=== PATIENT | female | born 1980 | race Asian ===

== ENCOUNTER 2017-09-11 19:03 | Emergency (ER) | payer MEDICAID, SELFPAY ==
[2017-09-11 19:04] VITALS: BP 122/86; PULSE 123; RESP 20; TEMP 37; O2SAT 97; BMI 28.0
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
[2017-09-11 20:53] VITALS: BP 114/78; PULSE 89; RESP 18; O2SAT 97
== END 2017-09-11 20:54 | disposition home or self-care (01) ==
PROVIDERS: Emergency Provider Emergency Medicine
DX: S00.83XA Contusion of other part of head, initial encounter (principal); Z72.0 Tobacco use; Y04.2XXA Assault by strike against or bumped into by another person, initial encounter; Y93.89 Activity, other specified; Y92.89 Other specified places as the place of occurrence of the external cause; Y99.8 Other external cause status
CPT/HCPCS: 70486; 99282

== ENCOUNTER 2017-10-09 18:48 | Inpatient (IN) | payer MEDICAID, SELFPAY ==
--- NOTE | 2017-10-09 21:00 | CT_ITS ---
STUDY: CT ABDOMEN AND PELVIS WITHOUT CONTRAST REASON FOR EXAM: Female, 37 years old. Mid abdominal pain RADIATION DOSAGE (If Supplied By Facility): CTDIvol = ( 6.11 ) mGy, DLP = ( 285.57 ) mGycm TECHNIQUE: Transaxial images were obtained from the lower chest to the upper thighs without oral contrast, and without intravenous contrast. Sagittal and coronal images were reconstructed. Individualized dose optimization techniques were used for this CT. COMPARISON: None. FINDINGS: There is minimal dependent atelectasis in both lung bases. There is no pleural effusion. The heart is normal in size. The liver is unremarkable. The gallbladder and biliary ducts are unremarkable. The spleen is unremarkable. The pancreas is unremarkable. The adrenal glands are unremarkable. The right kidney is unremarkable. There is no dilatation of the collecting system in the right kidney. The left kidney is unremarkable. There is no dilatation of the collecting system in the left kidney. The stomach is unremarkable. Small bowel is prominent and there is wall thickening in the small bowel, most pronounced in the left lower abdomen. There is minimal stranding around the small bowel in the lower abdomen. The colon is unremarkable. The appendix is not seen with certainty. The aorta and branch vessels are unremarkable. The IVC is unremarkable. The retroperitoneum is unremarkable. There is no free fluid in the abdomen. The urinary bladder is unremarkable. The uterus is normal in size and appearance. There are no abnormal masses in the adnexal regions. The soft tissues are unremarkable. The osseous structures are unremarkable. CT/Abdomen/Pelvis without Cont IMPRESSION: The study is limited without intravenous or oral contrast. Small bowel is prominent and there is wall thickening with surrounding inflammation suggesting an enteritis. This can be infectious or inflammatory. This appears most pronounced in the left lower abdomen. There is no ascites, free air or significant lymphadenopathy. Electronically Signed: Vero Fuentes MD at 11:06 EDT Tel Direct: [phone], Service support ,
--- NOTE | 2017-10-10 | EGD_PTH ---
PATIENT: CATIA HERNNADEZ LOC: PCU U#:[id number] AGE/SX: 37/F ROOM: [facility] RE10/10/[address]: Dr. Dayanna Leija MD : 1980 BED: 1 DIS: 10/15/2017 SPEC #: [id number] RECD: 10/10/17 14:11 STATUS: OTIS REQ #: [id number] CIPRIANO: 10/10/17 00:[address]: Lawrence Pineda DEPT: SURGICAL PATHOLOGY RECD BY: Abdiaziz Shaw ENTERED: 10/10/17 14:11 SP TYPE: EGD BIOPSY OTHR DR: Dr. Cierra Molina MD No Primary Care Phys Tissues: A - Gastric mucous membrane B - Gastric mucous membrane C - Gastric mucous membrane Procedures: Special Stain Group II Surgery Specimen Level IV Alcian Blue/PAS (control) Comments: @ Ordering doctor for SUIV edited from to @ by JOY at 10/11/17 1104 @ Submitting doctor edited from to @ by JOY at 10/11/17 1104 HEADER OPERATION: EGD PRE-OP DIAGNOSIS: Abdomen pain TISSUE SUBMITTED: A ? Jejunal biopsy, B ? Antral biopsy, C ? GE junction biopsy MICROSCOPIC DIAGNOSIS A. Jejunal biopsy: Fragment of small intestinal mucosa, no pathologic diagnosis. B. Antral biopsy: Mild gastritis. See microscopic description and comment. C. GE junction, biopsy: Fragment of gastroesophageal mucosa with chronic inflammation. Intestinal metaplasia (goblet cell metaplasia) is not identified. See comment. SJ:rg 10/13/17 COMMENT B. The results of immunohistochemistry for Helicobacter pylori will be reported separately ([id number]). C. Alcian blue/PAS stain with matched control is used in the evaluation of the specimen. MICROSCOPIC DESCRIPTION Slides are reviewed. B. The specimen shows fragments of gastric mucosa with chronic inflammatory cell infiltrates in the lamina propria consisting of lymphocytes and plasma cells, consistent with mild chronic gastritis. GROSS DESCRIPTION A - Received in fixative is one container labeled with the patient's name and designated jejunal biopsy. The specimen consists of one irregular fragment of light shea soft tissue that measures 0.4 x 0.3 x 0.1 cm. The specimen is totally submitted in one cassette. B - Received in fixative is one container labeled with the patient's name and designated antral biopsy. The specimen consists of one irregular fragment of light shea soft tissue that measures 0.4 x 0.4 x 0.1 cm. The specimen is totally submitted in one cassette. C - Received in fixative is one container labeled with the patient's name and designated GE junction biopsy. The specimen consists of one irregular fragment of light shea soft tissue that measures 0.2 x 0.1 x 0.1 cm. The specimen is totally submitted in one cassette. / SJ:rg 10/10/17 TC: CPT: 70410 x3, 36787
--- NOTE | 2017-10-10 | IMM_PTH ---
PATIENT: CATIA HERNANDEZ LOC: PCU U#:[id number] AGE/SX: 37/F ROOM: [facility] RE10/10/[address]: Dr. Dayanna Leija MD : 1980 BED: 1 DIS: 10/15/2017 SPEC #: [id number] RECD: 10/13/17 11:23 STATUS: SOUT REQ #: [id number] CIPRIANO: 10/10/17 00:[address]: Lawrence Pineda DEPT: IMMUNOHISTOCHEMISTRY RECD BY: Rosa Espinal ENTERED: 10/13/17 11:23 SP TYPE: IMMUNO OTHR DR: MD Dr. Cierra Fontaine MD No Primary Care Phys Tissues: B - Stomach, NOS Procedures: H Pylori (initial) Comments: @ Ordering doctor for H.PYLORI edited from to @ by JOY at 10/13/17 1550 @ Submitting doctor edited from to @ by JOY at 10/13/17 1550 PHYSICIAN & [place] [id number] SPECIMEN INFORMATION: Tissue Source: B ? Antral biopsy Clinical Info: Abdomen pain Specimen Number: [id number] CPT code: 29314 METHODOLOGY: Deparaffinized sections of prefer/formalin-fixed tissue or PAP/DQ stained slides are incubated with monoclonal/polyclonal antibodies/oligonucleotide probes. Localization is made via biotin free immunoperoxidase method. Appropriate controls are performed and reacted as expected. Results on target cell population are indicated in the following table: RESULTS: ANTIBODY / CLONE RESULT Block B H Pylori (polyclonal) negative These tests were developed and their performance characteristics determined by [facility]. They may not have been cleared or approved by the U.S. Food and Drug Administration. The FDA has determined that such clearance or approval is not necessary. INTERPRETATION: B. Antral biopsy: Negative for Helicobacter pylori organisms. SJ:mouna 10/13/17
--- NOTE | 2017-10-10 08:13 | DT_ITS ---
This patient was seen during an EMR downtime October 06, 2017 - October 13, 2017. This patient may have a combination of paper and electronic documentation or all paper documentation. All documentation is viewable within the e-chart portion of [facility] for each patient visit.
--- NOTE | 2017-10-10 09:05 | RAD_ITS ---
STUDY: X-RAY CHEST REASON FOR EXAM: Female, 37 years old. Mesenteritis TECHNIQUE: PA and lateral views of the chest. COMPARISON: CT of the abdomen and pelvis dated October 11, 2017 FINDINGS: There are few bibasilar patchy opacities. Normal size heart. Normal mediastinum and blayne. Normal visualized pulmonary arteries. Normal visualized aortic arch and descending thoracic aorta. Normal visualized thoracic spine. Normal visualized ribs, clavicles, and shoulders. There are air-fluid levels noted within dilated loops of small bowel. RAD/Chest PA and Lateral IMPRESSION: Bibasilar patchy opacities may reflect underlying atelectasis and/or pneumonia. Findings concerning for small bowel obstruction. Electronically Signed: Vera Tabares MD at 18:31 EDT Tel , Service support ,
--- NOTE | 2017-10-11 09:00 | CT_ITS ---
STUDY: CT ABDOMEN AND PELVIS WITH CONTRAST REASON FOR EXAM: Female, 37 years old. Abdominal pain RADIATION DOSAGE (If Supplied By Facility): CTDIvol = ( 15.82 ) mGy, DLP = ( 782.51 ) mGycm TECHNIQUE: Transaxial images were obtained from the dome of the diaphragm to the symphysis pubis without oral contrast. 100ML ml of Isovue 300 contrast was administered. Sagittal and coronal images were reconstructed. Individualized dose optimization techniques were used for this CT. COMPARISON: None. FINDINGS: Lung bases demonstrate bibasilar subsegmental atelectasis no pericardial effusion. Spleen and liver appear unremarkable small amount of perihepatic fluid Gallbladder is slightly distended. The pancreas and adrenal glands appear unremarkable. Kidneys demonstrate no evidence for hydronephrosis. Dilatation of the small bowel loops with air-fluid levels and collapse of the distal loops noted suggestive of small bowel obstruction. Small amount of interloop fluid also seen. There is free fluid in the pelvis. Abdominal aorta appears unremarkable Uterus appears heterogeneous Osseous structures demonstrate no acute abnormalities. Degenerative disc disease at L5-S1 level. No free intraperitoneal air seen. IMPRESSION: Dilated small bowel loops with air-fluid levels and collapse of the distal loops suggestive of small bowel obstruction. Small amount of interloop fluid is seen. Free fluid in the pelvis also identified. Heterogeneous appearance of the cervix which can be assessed with direct visual inspection. Small cervical mass is not excluded from this examination. Electronically Signed: Nahum Panda, at 11:34 EDT Tel , Service support , CT/Abdomen/Pelvis WITH Contrast
[2017-10-11 12:00] LABS: Amphetamine Urine VISTA POSITIVE (<1000 ng/mL); Barbiturate Urine VISTA NEGATIVE (< 200 ng/mL); Benzodiazepine Urine VISTA NEGATIVE (< 200 ng/mL); Cocaine Urine VISTA NEGATIVE (< 300 ng/mL); Ecstacy Urine VISTA POSITIVE (< 500 ng/mL); Methadone Urine VISTA NEGATIVE (< 300 ng/mL); PCP Urine VISTA NEGATIVE (< 25 ng/mL); THC Urine VISTA NEGATIVE (< 50 ng/mL)
[2017-10-11 12:09] LABS: ALB/GLOB Ratio 0.8 RATIO (0.9-2.4); AST(SGOT) 29 U/L (15-37); Alanine Aminotransfer ALT/SGPT 47 U/L (13-56); Albumin, Serum 3.4 g/dL (3.2-5.0); Alkaline Phosphatase 87 U/L (45-117); Anion Gap 9 (5-15); BUN 9 mg/dL (7-18); BUN/Creat Ratio 10.8 RATIO (10-20); Calcium,Total 8.4 mg/dL (8.5-10.1); Chloride 104 mmol/L (98-107); Creatinine, Serum 0.83 mg/dL (0.55-1.02); EST Glomerular Filtration Rate 83 mL/min (>60); Est Glom Filt Rate - Afr Amer 101 mL/min (>60); Globulin 4.2 g/dL (2.2-4.2); Glucose 102 mg/dL (74-106); Lipase 56 U/L (73-393); Potassium 3.7 mmol/L (3.5-5.1); Protein, Total 7.6 g/dL (6.4-8.2); Sodium Level 140 mmol/L (136-145)
[2017-10-11 12:10] LABS: Pregnancy, Serum, hCG Quali. NEGATIVE Negative (0-9 Nonpreg)
[2017-10-11 13:34] LABS: Bacteria 0 SEEN /hpf (None Seen); Color, Urine Yellow (Yellow); Glucose, Dipstick NEGATIVE (Normal); Ketone-Dipstick 50 mg/dl (Negative); Leukocyte Esterase-Dipstick 25 /ul (Negative); Mucous, Urine 2+ /hpf (<or=2+); Nitrite-Dipstick Negative (Negative); Occult Blood-Urine Negative /ul (Negative); Protein-Dipstick 30 mg/dl (Negative); Red Blood Cells-Urine 0 SEEN /hpf (0-5); Specific Gravity, Urine 1.015 (1.002-1.030); Squamous Epithelial Cells - UA 0-5 SEEN /hpf (5-10); Urine Bilirubin Dipstick Negative (Negative); Urine Clarity Clear (Clear); Urine Urobilinogen Normal (Normal); White Blood Cells 0-5 SEEN /hpf (0-5)
[2017-10-11 13:39] LABS: Absolute Lymphocyte Count 1.27 X10^3/ul (0.83-4.51); Absolute Neutrophil Count 20.7 X10^3/uL (2.0-7.7); Basophil# 0.01 X10^3/uL; Differential Indicated SCAN CRITERIA MET; Hematocrit 39.7 % (37-47); Lymphocyte # 1.27 X10^3/ul (4.0); Lymphocyte % 5.6 % (19-41); Mean Corp Hgb Conc 35.3 g/gl (32-36); Mean Corpuscular Hgb 31.1 pg (27.0-32.0); Mean Corpuscular Volume 88.2 fL (81-99); Mean Platelet Vol. 9.3 fl (6.2-12.0); Monocyte# 0.66 X10^3/uL; Monocyte% 2.9 % (0-10); Neutrophil # 20.66 X10^3/uL (2.7-7.7); Neutrophil % 91.2 % (47-70); POSITIVE COUNT NO; POSITIVE DIFFERENTIAL YES; POSITIVE MORPHOLOGY NO; Platelet Count 322 K/mm3 (150-450); RBC Distribution Width CV 12.3 % (11.6-14.6); RBC Distribution Width SD 39.2 fl (35.1-43.9); White Blood Count 22.7 K/mm3 (4.4-11.0)
[2017-10-11 13:40] LABS: Differential Comment SCANNED
--- NOTE | 2017-10-12 05:00 | RAD_ITS ---
STUDY: X-RAY - ABDOMEN/PELVIS REASON FOR EXAM: Female, 37 years old. Abdominal pain. TECHNIQUE: AP supine and upright views of the abdomen and pelvis. COMPARISON: CT of the abdomen and pelvis dated October 11, 2017. FINDINGS: Normal visualized lung bases. There is dilated small bowel with multiple air-fluid levels. Maximum transverse dimension of the small bowel is approximately 4.6 cm. There is no demonstrated free abdominal air. There is no obvious organomegaly or mass. Opaque contrast is visible in the urinary bladder probably related to recent CT. Normal soft tissue structures. Normal visualized osseous structures. RAD/Abd Inc Decub and/or Erect IMPRESSION: Persistent evidence for small bowel obstruction. Electronically Signed: Dina Reyes MD at 8:13 EDT , Service support ,
[2017-10-12 07:29] LABS: Hemoglobin 11.8 g/dl (12.0-15.0); Mean Corpuscular Hgb 30.1 pg (27.0-32.0); Red Blood Count 3.92 M/mm3 (4.2-5.4); White Blood Count 15.1 K/mm3 (4.4-11.0)
[2017-10-12 07:30] LABS: Mean Corp Hgb Conc 33.7 g/gl (32-36); Mean Platelet Vol. 9.4 fl (6.2-12.0); POSITIVE COUNT NO; POSITIVE DIFFERENTIAL NO; POSITIVE MORPHOLOGY NO; Platelet Count 336 K/mm3 (150-450); RBC Distribution Width CV 12.9 % (11.6-14.6); RBC Distribution Width SD 41.4 fl (35.1-43.9)
[2017-10-12 07:31] LABS: Absolute Lymphocyte Count 1.27 X10^3/ul (0.83-4.51); Absolute Neutrophil Count 13.1 X10^3/uL (2.0-7.7); Basophil# 0.01 X10^3/uL; Basophil% 0.1 % (0-1); Eosinophil# 0.07 X10^3/uL; Eosinophils% 0.5 % (0-5); Lymphocyte # 1.27 X10^3/ul (4.0); Lymphocyte % 8.4 % (19-41); Monocyte# 0.56 X10^3/uL; Monocyte% 3.7 % (0-10); Neutrophil # 13.14 X10^3/uL (2.7-7.7); Neutrophil % 87.2 % (47-70)
--- NOTE | 2017-10-12 10:09 | US_ITS ---
STUDY: PELVIC ULTRASOUND TRANSVAGINAL REASON FOR EXAM: Female, 37 years old. Abdominal pain, fluid on CT LMP: October 07, 2017 TECHNIQUE: Transverse and longitudinal imaging of the pelvis was obtained transvaginally using real-time ultrasound. COMPARISON: CT abdomen and pelvis dated October 11, 2017 and October 09, 2017 FINDINGS: The uterus is anteverted and is in a midline position. The uterus measures 7.2 x 3.5 x 4.7 cm. The cervix is unremarkable. The endometrium measures 8.7 mm in thickness, and is heterogeneous. There is no demonstrated endometrial mass. There is no demonstrated myometrial mass. I.U.D. - The patient does not have an I.U.D. The right ovary is visualized. The right ovary measures 2.7 x 1.3 x 1.7 cm. There is no right ovarian cyst or ovarian mass. There is no visualized right adnexal mass or complex lesion. There is normal arterial and normal venous vascularity. The left ovary is visualized. The left ovary measures 3.0 x 1.6 x 2.5 cm. There is no left ovarian cyst or ovarian mass. There is no visualized left adnexal mass or complex lesion. There is normal arterial and normal venous vascularity. There is a large volume of fluid in the cul-de-sac. The urinary bladder was not imaged. US/Transvaginal Non- IMPRESSION: There is marked ascites in the pelvis. Some of the fluid is complex in nature, possibly hemorrhagic or infectious. No abnormalities are evident in the uterus or ovaries. There are distended loops of bowel in the pelvis corresponding to the appearance on CT. The CT from October 11 shows marked worsening of the small bowel compared to October 09 suggesting a small bowel obstruction of unknown etiology. Electronically Signed: Vero Fuentes MD at 11:06 EDT Tel Direct: [phone], Service support ,
[2017-10-12 12:48] LABS: ALB/GLOB Ratio 0.5 RATIO (0.9-2.4); AST(SGOT) 9 U/L (15-37); Alanine Aminotransfer ALT/SGPT 14 U/L (13-56); Alkaline Phosphatase 85 U/L (45-117); Anion Gap 8 (5-15); BUN 7 mg/dL (7-18); BUN/Creat Ratio 13.7 RATIO (10-20); Calcium,Total 7.8 mg/dL (8.5-10.1); Chloride 109 mmol/L (98-107); Creatinine, Serum 0.51 mg/dL (0.55-1.02); EST Glomerular Filtration Rate 145 mL/min (>60); Est Glom Filt Rate - Afr Amer 176 mL/min (>60); Globulin 4.2 g/dL (2.2-4.2); Glucose 100 mg/dL (74-106); Potassium 3.3 mmol/L (3.5-5.1); Protein, Total 6.2 g/dL (6.4-8.2); Sodium Level 141 mmol/L (136-145)
[2017-10-13] VITALS (8 sets, daily range): BP systolic 97–112; BP diastolic 71–76; PULSE 86–102; RESP 16–18; TEMP 35.9–36.9; O2SAT 97–99
[2017-10-13] MEDS: Piperacil/Tazobactam 3.375 GM Q8 PREMIX IV ×3 (05:25→21:55)
[2017-10-13] MEDS: Enoxaparin 40 MG/0.4 ML Syringe SC (05:25)
[2017-10-13 06:16] LABS: Absolute Lymphocyte Count 1.53 X10^3/ul (0.83-4.51); Absolute Neutrophil Count 11.5 X10^3/uL (2.0-7.7); Basophil# 0.02 X10^3/uL; Basophil% 0.1 % (0-1); Eosinophil# 0.16 X10^3/uL; Eosinophils% 1.1 % (0-5); Hematocrit 33.7 % (37-47); Hemoglobin 11.7 g/dl (12.0-15.0); Lymphocyte # 1.53 X10^3/ul (4.0); Lymphocyte % 10.7 % (19-41); Mean Corp Hgb Conc 34.7 g/gl (32-36); Mean Corpuscular Hgb 30.8 pg (27.0-32.0); Mean Corpuscular Volume 88.7 fL (81-99); Mean Platelet Vol. 9.2 fl (6.2-12.0); Monocyte# 1.07 X10^3/uL; Monocyte% 7.5 % (0-10); Neutrophil # 11.46 X10^3/uL (2.7-7.7); Neutrophil % 80.3 % (47-70); Platelet Count 374 K/mm3 (150-450); RBC Distribution Width CV 12.5 % (11.6-14.6); RBC Distribution Width SD 39.5 fl (35.1-43.9); White Blood Count 14.3 K/mm3 (4.4-11.0)
[2017-10-13 06:43] LABS: POSITIVE COUNT NO; POSITIVE DIFFERENTIAL NO; POSITIVE MORPHOLOGY NO
[2017-10-13 06:54] LABS: ALB/GLOB Ratio 0.5 RATIO (0.9-2.4); AST(SGOT) 11 U/L (15-37); Alanine Aminotransfer ALT/SGPT 12 U/L (13-56); Alkaline Phosphatase 73 U/L (45-117); Anion Gap 6 (5-15); BUN 3 mg/dL (7-18); BUN/Creat Ratio 5.4 RATIO (10-20); Calcium,Total 7.9 mg/dL (8.5-10.1); Chloride 106 mmol/L (98-107); Creatinine, Serum 0.56 mg/dL (0.55-1.02); EST Glomerular Filtration Rate 130 mL/min (>60); Est Glom Filt Rate - Afr Amer 157 mL/min (>60); Globulin 4.3 g/dL (2.2-4.2); Glucose 112 mg/dL (74-106); Potassium 3.4 mmol/L (3.5-5.1); Protein, Total 6.3 g/dL (6.4-8.2); Sodium Level 142 mmol/L (136-145)
[2017-10-13] MEDS: oxyCODONE 5 MG Tablet PO ×2 (09:05→15:15)
[2017-10-13] MEDS: 0.9% NaCl Peripheral Flush Adult/Peds IV (09:25)
[2017-10-13] MEDS: proMETHazine 25 MG/ML Syringe 6.25 MG IV (09:25)
--- NOTE | 2017-10-13 09:39 | RAD_ITS ---
STUDY: X-RAY - ABDOMEN/PELVIS REASON FOR EXAM: Female, 37 years old. Abdominal pain. Bleeding TECHNIQUE: 1 view COMPARISON: None. FINDINGS: Minimally prominent loops of large bowel with contrast within it no evidence of intestinal obstruction and no free intraperitoneal air RAD/Abd Inc Decub and/or Erect IMPRESSION: No evidence of intestinal obstruction. Electronically Signed: Jaden Beltran, at 6:03 EDT Tel , Service support ,
[2017-10-13 10:51] LABS: Magnesium 1.7 mg/dL (1.6-2.6)
--- NOTE | 2017-10-13 14:53 | PCM.PN.SRG ---
Subjective: still some abdominal cramping, nonbloody bowel movement- - Physical Exam General: Alert, Oriented x3 Lungs: Rhonchi - bases Cardiovascular: Regular rate, Regular Rhythm Abdomen: Bowel Sounds Present, Soft, Hypoactive Bowel Sounds, Distended, Tender - mildly, diffusely tender, but improved over the weekend Laboratory Tests Past 24 Hrs 10/13/17 10/13/17 10/13/17 05:40 05:40 05:40 WBC 14.3 H RBC 3.80 L Hgb 11.7 L Hct 33.7 L MCV 88.7 MCH 30.8 MCHC 34.7 RDW 12.5 RDW Differential 39.5 Plt Count 374 MPV 9.2 Immature Gran % (Auto) 0.300 Neut % (Auto) 80.3 H Lymph % (Auto) 10.7 L [place] % (Auto) 7.5 Eos % (Auto) 1.1 Baso % (Auto) 0.1 Absolute Neuts (auto) 11.5 H Absolute Lymphs (auto) 1.53 Total Counted Not Reportable Sodium 142 Potassium 3.4 L Chloride 106 Carbon Dioxide 30.0 Anion Gap 6 BUN 3 L Creatinine 0.56 Est GFR (MDRD) Af Amer 157 Est GFR (MDRD) Non-Af 130 BUN/Creatinine Ratio 5.4 L Glucose 112 H Calcium 7.9 L Magnesium 1.7 Total Bilirubin 0.40 AST 11 L ALT 12 L Alkaline Phosphatase 73 Total Protein 6.3 L Albumin 2.0 L Globulin 4.3 H Albumin/Globulin Ratio 0.5 L Medical Necessity - Tobacco Use Smoking Status: Former smoker Assessment/Plan abdominal pain-complex etiology Jade Jackson is a 37 y.o. female who presented with abdominal pain which worsened after smoking crystal methamphetamine. She presented with abdominal pain and nonspecific noncontrast CT scan read as possible mesenteric inflammation. the patient's white blood cell count was 22,000 at admission. She had a negative Lactic acid level. Her urinalysis was unremarkable. Her toxicology screen was only positive for methamphetamine. patient was started on Zosyn as an antibiotic on my initial evaluation, the patient had more tenderness in the epigastric region and lower abdominal areas. Upper endoscopy was performed on Friday, which did demonstrate a duodenal ulcer with no signs of bleeding. the patient's abdominal pain persisted in her white blood second increased to 39,000. Follow-up CT scan with oral and IV contrast was obtained. This still demonstrated no focal surgical problem such as appendicitis, but now demonstrated small bowel and colonic distention concerning for ileus versus obstruction. There is also fluid in the pelvis and the uterus appeared hazy to me. additionally felt the patient had bilateral lower lung field changes felt to be consistent with either pneumonitis or inhaled material from her smoking crystal methamphetamine Bimanual exam demonstrated no true cervical motion tenderness for bilateral adnexal tenderness. Pelvic ultrasound was obtained which demonstrated fluid but no obvious signs of pelvic inflammatory disease. Follow up abdominal series now shows improvement with contrast to the rectum. The patient's WBC continues to normalize and her bowel function seems to be returning. Literature review does discuss both ileus after methamphetamine use and ischemic bowel/abdominal pain issues secondary to norepinephrine release. at this point in time, given her course and without more specific identifiable surgical problems, my working diagnosis remains abdominal pain secondary to crystal methamphetamine use.
[2017-10-13] MEDS: Potassium Chloride 40 MEQ in 0.9% Normal Saline 1,000 ML 70 MEQ IV (15:06)
[2017-10-13 22:53] LABS: ALB/GLOB Ratio 0.7 RATIO (0.9-2.4); AST(SGOT) 17 U/L (15-37); Alanine Aminotransfer ALT/SGPT 32 U/L (13-56); Albumin, Serum 2.7 g/dL (3.2-5.0); Alkaline Phosphatase 73 U/L (45-117); Anion Gap 8 (5-15); BUN 9 mg/dL (7-18); BUN/Creat Ratio 10.7 RATIO (10-20); Calcium,Total 7.7 mg/dL (8.5-10.1); Chloride 109 mmol/L (98-107); Creatinine, Serum 0.84 mg/dL (0.55-1.02); EST Glomerular Filtration Rate 82 mL/min (>60); Est Glom Filt Rate - Afr Amer 99 mL/min (>60); Globulin 3.7 g/dL (2.2-4.2); Glucose 99 mg/dL (74-106); Magnesium 1.8 mg/dL (1.6-2.6); Phosphorus 3.3 mg/dL (2.5-4.9); Potassium 3.6 mmol/L (3.5-5.1); Protein, Total 6.4 g/dL (6.4-8.2); Sodium Level 142 mmol/L (136-145)
[2017-10-13 23:03] LABS: Lactic Acid 1.1 mmol/L (0.4-2.0)
[2017-10-14] VITALS (11 sets, daily range): BP systolic 101–112; BP diastolic 71–79; PULSE 78–96; RESP 16–17; TEMP 36.4–37.2; O2SAT 93–99
[2017-10-14] MEDS: oxyCODONE 5 MG Tablet PO ×3 (00:31→18:39)
[2017-10-14] MEDS: Piperacil/Tazobactam 3.375 GM Q8 PREMIX IV ×3 (05:22→20:52)
[2017-10-14] MEDS: Enoxaparin 40 MG/0.4 ML Syringe SC (05:24)
[2017-10-14 06:07] LABS: Absolute Lymphocyte Count 2.11 X10^3/ul (0.83-4.51); Absolute Neutrophil Count 8.8 X10^3/uL (2.0-7.7); Basophil# 0.03 X10^3/uL; Basophil% 0.2 % (0-1); Eosinophil# 0.19 X10^3/uL; Eosinophils% 1.6 % (0-5); Hematocrit 32.2 % (37-47); Hemoglobin 11.3 g/dl (12.0-15.0); Lymphocyte # 2.11 X10^3/ul (4.0); Lymphocyte % 17.2 % (19-41); Mean Corp Hgb Conc 35.1 g/gl (32-36); Mean Corpuscular Hgb 30.9 pg (27.0-32.0); Monocyte# 1.01 X10^3/uL; Monocyte% 8.3 % (0-10); Neutrophil % 71.9 % (47-70); Platelet Count 362 K/mm3 (150-450); RBC Distribution Width CV 12.4 % (11.6-14.6); Red Blood Count 3.66 M/mm3 (4.2-5.4); White Blood Count 12.2 K/mm3 (4.4-11.0)
[2017-10-14 06:11] LABS: POSITIVE COUNT NO; POSITIVE DIFFERENTIAL NO; POSITIVE MORPHOLOGY NO
[2017-10-14 06:56] LABS: Anion Gap 6 (5-15); BUN 2 mg/dL (7-18); BUN/Creat Ratio 3.9 RATIO (10-20); Chloride 108 mmol/L (98-107); Creatinine, Serum 0.52 mg/dL (0.55-1.02); EST Glomerular Filtration Rate 143 mL/min (>60); Est Glom Filt Rate - Afr Amer 173 mL/min (>60); Glucose 99 mg/dL (74-106); Potassium 3.9 mmol/L (3.5-5.1); Sodium Level 140 mmol/L (136-145)
--- NOTE | 2017-10-14 06:56 | PCM.PN.HOSP ---
Subjective: Patient was seen and examined. She is tolerating soft diet. Ambulating in the room. Complains of some mild abdominal pain. Oxycodone seems to help. Vitals/I&O's: Vital Signs Temp Pulse Resp BP Pulse Ox 97.6 F L 92 17 111/75 98 10/14/17 02:18 10/14/17 03:13 10/14/17 02:18 10/14/17 02:18 10/14/17 02:18 Oxygen Delivery Method Room Air Weight: 65.2 kg Intake and Output for Last 24 Hours 10/12/17 10/13/17 10/14/17 23:59 23:59 23:59 Intake Total 1233 / 1233 1515 / 1515 Balance 1233 / 1233 1515 / 1515 General: Alert, Oriented x3, Cooperative, No apparent distress HEENT: Atraumatic, PERRLA, EOMI, Normocephalic Oral: Moist Mucosa Neck: Supple Lungs: Clear to auscultation, Normal air movement Cardiovascular: Regular rate, Regular Rhythm, Normal S1, Normal S2, No murmurs Abdomen: Bowel Sounds Present, Soft, Non-Distended, No Hepato-splenomegaly, Tender - generalised, no guarding, or RBT Extremities: No edema Skin: No rashes, No breakdown Musculoskeletal: No Tenderness to Palpation of Joints or Extremities Lymphatic: No Cervical, Supraclavicular, or Inguinal Adenopathy Neurological: Cranial nerves II-XII grossly intact, Neuro grossly intact Psych/Mental Status: Normal Affect, Appropriate Laboratory Results 10/13/17 05:40: Magnesium 1.7 10/14/17 05:45: WBC 12.2 H, RBC 3.66 L, Hgb 11.3 L, Hct 32.2 L, MCV 88.0, MCH 30.9, MCHC 35.1, RDW 12.4, RDW Differential 39.0, Plt Count 362, MPV 9.0, Immature Gran % (Auto) 0.800, Neut % (Auto) 71.9 H, Lymph % (Auto) 17.2 L, [place] % (Auto) 8.3, Eos % (Auto) 1.6, Baso % (Auto) 0.2, Absolute Neuts (auto) 8.8 H, Absolute Lymphs (auto) 2.11, Total Counted Not Reportable 10/14/17 05:45: Sodium 140, Potassium 3.9, Chloride 108 H, Carbon Dioxide 26.0, Anion Gap 6, BUN 2 L, Creatinine 0.52 L, Est GFR (MDRD) Af Amer 173, Est GFR (MDRD) Non-Af 143, BUN/Creatinine Ratio 3.9 L, Glucose 99, Calcium 8.0 L Current Medications Acetaminophen (Tylenol) 650 mg PO Q4H PRN PRN PRN Reason: PAIN/FEVER Al Hydroxide/Mg Hydroxide (Mylanta Ii) 30 ml PO Q6H PRN PRN PRN Reason: DYSPEPSIA Enoxaparin Sodium (Lovenox) 40 mg SC DAILY@0600 [facility] Last Admin: 10/14/17 05:24 Dose: 40 mg Pantoprazole Sodium 40 mg/ (Sodium Chloride) 100 mls @ 300 mls/hr IV BID [facility] Last Admin: 10/13/17 21:58 Dose: 300 mls/hr Piperacillin Sod/Tazobactam Sod (Zosyn) 3.375 gm in 50 mls @ 12.5 mls/hr IV Q8 [facility] Last Admin: 10/14/17 05:22 Dose: 12.5 mls/hr Potassium Chloride 40 meq/ (Sodium Chloride) 1,020 mls @ 70 mls/hr IV .[id number] [facility] Last Admin: 10/13/17 15:06 Dose: 70 mls/hr Nicotine (Nicoderm Cq (Pbkc)) 14 mg TRANSDERM. DAILY [facility] Last Admin: 10/13/17 15:15 Dose: 14 mg Ondansetron HCl (Zofran) 4 mg IV Q6H PRN PRN PRN Reason: NAUSEA/VOMITING Oxycodone HCl (Oxyir) 5 - 10 mg PO Q4H PRN PRN PRN Reason: MILD TO MOD PAIN Last Admin: 10/14/17 06:12 Dose: 10 mg Promethazine HCl (Phenergan) 6.25 mg IV Q6H PRN PRN PRN Reason: NAUSEA/VOMITING Last Admin: 10/13/17 09:25 Dose: 6.25 mg Simethicone (Mylicon) 80 mg PO TIDPC PRN PRN Reason: INDIGESTION Sodium Chloride () 5 - 30 ml IV UD PRN PRN Reason: SALINE FLUSH Last Admin: 10/13/17 09:25 Dose: 20 ml Medical Necessity - Tobacco Use Smoking Status: Former smoker Assessment/Plan 37-year-old with past medical history of polysubstance abuse, methamphetamine, cocaine and marijuana who presented with abdominal pain with initial CT scan of the abdomen concerning for possible mesenteric inflammation. Patient had had elevated WBC count but normal lactic acid. She had upper endoscopy done that showed duodenal ulcer without any signs of bleeding. Repeat CT scan of the abdomen and pelvis showed fluid in the pelvis with ileus. 1. Abdominal pain, likely related to recent methamphetamine intake vs enteritis, seen on initial CT of the abdomen and pelvis, EGD done shows duodenal ulcer, CT scan of the abdomen and pelvis showed ileus, conservatively being managed, general surgery following. It does not started on a soft diet for which she is tolerating. Continue on Zosyn, as needed Zofran as well as PPI and simethicone Patient admits that her intake of methamphetamine might have been contaminated with another substance for which she is unsure of 2. Hypokalemia, replace, continue on IV potassium, will follow BMP in a.m. 3. Duodenal ulcer s/p biopsy, follow-up on biopsy results. 4. Polysubstance use disorder - cocaine, marijuana, methamphetamine, urine tox positive for methamphetamine use disorder, advised to quit, patient plans on inpatient 180 admission, continue on nicotine patch 5. DVT prophylaxis with heparin subcu Code Visit Inpatient E&M: 38116 Subs Hosp L2
--- NOTE | 2017-10-14 09:11 | CASEMGMT ---
Addendum entered by Criss Snow 10/14/17 12:26: Patient is concerned about being discharged and then having to wait on an inpatient bed to open. She knows she will relapse. She would like to go to an inpatient facility from [facility]. She spoke with her counselor and he said there is a wait list. NAPOLEON spoke with Cassy in [facility] and she will come talk with patient and possibly help get her to an inpatient facility. SW notified patient and she was in agreement. Criss GUADARRAMA Original Note: NAPOLEON spoke with patient and she has spoken to [facility] today. She needs to talk with Huong at [facility] and they are not in until 530p. She said she can go back there, but will have to talk with them. She also is going to call [facility] to see if she can get into their inpatient program. NAPOLEON told her there is a good chance there may not be a bed available and she may have to do outpatient until a bed opens up for inpatient treatment. Criss GUADARRAMA
[2017-10-14 10:03] LABS: BUN 11 mg/dL (7-18); BUN/Creat Ratio 15.5 RATIO (10-20); Creatinine, Serum 0.71 mg/dL (0.55-1.02); EST Glomerular Filtration Rate 99 mL/min (>60); Est Glom Filt Rate - Afr Amer 120 mL/min (>60); Glucose 99 mg/dL (74-106)
[2017-10-14 10:04] LABS: ALB/GLOB Ratio 0.5 RATIO (0.9-2.4); AST(SGOT) 11 U/L (15-37); Alanine Aminotransfer ALT/SGPT 22 U/L (13-56); Albumin, Serum 2.2 g/dL (3.2-5.0); Alkaline Phosphatase 79 U/L (45-117); Anion Gap 8 (5-15); Chloride 110 mmol/L (98-107); Globulin 4.1 g/dL (2.2-4.2); Potassium 3.6 mmol/L (3.5-5.1); Protein, Total 6.3 g/dL (6.4-8.2); Sodium Level 142 mmol/L (136-145)
[2017-10-14] MEDS: Potassium Chloride 40 MEQ in 0.9% Normal Saline 1,000 ML 70 MEQ IV (10:46)
--- NOTE | 2017-10-14 12:52 | CASEMGMT ---
Addendum entered by Criss Snow 10/14/17 15:09: SW spoke with patient and let her know about conversation with [facility]. She would like to get transportation so she can say bye to family. She will let SW know if this changes. SW also notified physician. Plan: d/c to inpatient drug treatment in [place], [place]. Criss GUADARRAMA Original Note: Addendum entered by Criss Snow 10/14/17 13:52: SW spoke with patient and she said Iban wanted Cassy or NAPOLEON to call him. SW called Iban and he said they have a treatment facility for patient for tomorrow. When patient is ready patient just needs to call him and let him know when she will be arriving. The address of the facility is [address] [place] [address]. Iban's phone number is [phone]. NAPOLEON notified RN and will notify physician. Plan: d/c to inpatient drug treatment center in [place] Friday. Criss GUADARRAMA Original Note: Cassy from [email or web address] gave patient 3 different facilities to call. She said patient is to call her back if she is not having any luck with those facilities. She said if patient finds a facility that will take her she can arrange all of this on her own. Patient could utilize [employer] for her transportation. NAPOLEON will check back wit patient to make sure she is making those calls. Criss GUADARRAMA
[2017-10-14] MEDS: Acetaminophen 325 MG Tablet 650 MG PO ×2 (13:01→20:52)
[2017-10-14 16:15] LABS: Hematocrit 36.7 % (37-47); Hemoglobin 12.6 g/dl (12.0-15.0); Mean Corp Hgb Conc 34.3 g/gl (32-36); Mean Corpuscular Volume 90.4 fL (81-99); Platelet Count 272 K/mm3 (150-450); RBC Distribution Width CV 12.2 % (11.6-14.6); RBC Distribution Width SD 39.5 fl (35.1-43.9); Red Blood Count 4.06 M/mm3 (4.2-5.4)
[2017-10-14 16:16] LABS: Absolute Lymphocyte Count 1.15 X10^3/ul (0.83-4.51); Absolute Neutrophil Count 37.6 X10^3/uL (2.0-7.7); Basophil# 0.04 X10^3/uL; Basophil% 0.1 % (0-1); Differential Indicated SCAN CRITERIA MET; Eosinophil# 0.01 X10^3/uL; Lymphocyte # 1.15 X10^3/ul (4.0); Lymphocyte % 2.9 % (19-41); Mean Platelet Vol. 9.7 fl (6.2-12.0); Monocyte# 0.94 X10^3/uL; Monocyte% 2.4 % (0-10); Neutrophil % 94.1 % (47-70); POSITIVE COUNT YES; POSITIVE DIFFERENTIAL YES; POSITIVE MORPHOLOGY NO; Pathologist Review May foll
--- NOTE | 2017-10-14 16:17 | NURSING ---
This RN taking over care at this time
[2017-10-14 17:56] LABS: Hematocrit 33.7 % (37-47); Hemoglobin 11.4 g/dl (12.0-15.0); Mean Corp Hgb Conc 33.8 g/gl (32-36); Mean Corpuscular Hgb 30.6 pg (27.0-32.0); Mean Corpuscular Volume 90.6 fL (81-99); Platelet Count 295 K/mm3 (150-450); RBC Distribution Width CV 13.1 % (11.6-14.6); RBC Distribution Width SD 43.1 fl (35.1-43.9); Red Blood Count 3.72 M/mm3 (4.2-5.4); White Blood Count 20.4 K/mm3 (4.4-11.0)
[2017-10-14 17:57] LABS: Mean Platelet Vol. 9.6 fl (6.2-12.0); Scan Indicated on CBC? Y/N NO
--- NOTE | 2017-10-14 23:07 | PN.SURG_ITS ---
Subjective: +BM, + flatus, hungry, - Physical Exam General: Alert, Oriented x3, Cooperative Lungs: Clear to auscultation, Normal air movement Cardiovascular: Regular rate, No murmurs Abdomen: Bowel Sounds Present, Soft, Tender - minimally - mild distention Vital Signs Temp Pulse Resp BP Pulse Ox 98.1 F 80 16 110/75 99 10/14/17 20:40 10/14/17 20:40 10/14/17 20:40 10/14/17 20:40 10/14/17 20:40 Oxygen Flow Rate (L/min) 2 Oxygen Delivery Method Nasal Cannula Weight: 65.2 kg Intake and Output for Last 24 Hours 10/12/17 10/13/17 10/14/17 23:59 23:59 23:59 Intake Total 1233 / 1233 2883.5 / 2883.5 Balance 1233 / 1233 2883.5 / 2883.5 Laboratory Tests Past 24 Hrs 10/10/17 10/11/17 10/11/17 Unknown 05:40 Unknown WBC 40.0 H* 20.4 H RBC 4.06 L 3.72 L Hgb 12.6 11.4 L Hct 36.7 L 33.7 L MCV 90.4 90.6 MCH 31.0 30.6 MCHC 34.3 33.8 RDW 12.2 13.1 RDW Differential 39.5 43.1 Plt Count 272 295 MPV 9.7 9.6 Immature Gran % (Auto) 0.500 Neut % (Auto) 94.1 H Lymph % (Auto) 2.9 L [place] % (Auto) 2.4 Eos % (Auto) 0.0 Baso % (Auto) 0.1 Absolute Neuts (auto) 37.6 H Absolute Lymphs (auto) 1.15 Total Counted Not Reportable Diff Path Review May foll Sodium 142 Potassium 3.6 Chloride 110 H Carbon Dioxide 24.0 Anion Gap 8 BUN 11 Creatinine 0.71 Est GFR (MDRD) Af Amer 120 Est GFR (MDRD) Non-Af 99 BUN/Creatinine Ratio 15.5 Glucose 99 Calcium 8.0 L Total Bilirubin 0.20 AST 11 L ALT 22 Alkaline Phosphatase 79 Total Protein 6.3 L Albumin 2.2 L Globulin 4.1 Albumin/Globulin Ratio 0.5 L 10/14/17 10/14/17 05:45 05:45 WBC 12.2 H RBC 3.66 L Hgb 11.3 L Hct 32.2 L MCV 88.0 MCH 30.9 MCHC 35.1 RDW 12.4 RDW Differential 39.0 Plt Count 362 MPV 9.0 Immature Gran % (Auto) 0.800 Neut % (Auto) 71.9 H Lymph % (Auto) 17.2 L [place] % (Auto) 8.3 Eos % (Auto) 1.6 Baso % (Auto) 0.2 Absolute Neuts (auto) 8.8 H Absolute Lymphs (auto) 2.11 Total Counted Not Reportable Diff Path Review Sodium 140 Potassium 3.9 Chloride 108 H Carbon Dioxide 26.0 Anion Gap 6 BUN 2 L Creatinine 0.52 L Est GFR (MDRD) Af Amer 173 Est GFR (MDRD) Non-Af 143 BUN/Creatinine Ratio 3.9 L Glucose 99 Calcium 8.0 L Total Bilirubin AST ALT Alkaline Phosphatase Total Protein Albumin Globulin Albumin/Globulin Ratio Medical Necessity - Tobacco Use Smoking Status: Former smoker Assessment/Plan abdominal pain-complex etiology Jade Jackson is a 37 y.o. female who presented with abdominal pain which worsened after smoking crystal methamphetamine. She presented with abdominal pain and nonspecific noncontrast CT scan read as possible mesenteric inflammation. the patient's white blood cell count was 22,000 at admission. She had a negative Lactic acid level. Her urinalysis was unremarkable. Her toxicology screen was only positive for methamphetamine. patient was started on Zosyn as an antibiotic on my initial evaluation, the patient had more tenderness in the epigastric region and lower abdominal areas. Upper endoscopy was performed on Friday, which did demonstrate a duodenal ulcer with no signs of bleeding. the patient' s abdominal pain persisted in her white blood second increased to 39,000. Follow-up CT scan with oral and IV contrast was obtained. This still demonstrated no focal surgical problem such as appendicitis, but now demonstrated small bowel and colonic distention concerning for ileus versus obstruction. There is also fluid in the pelvis and the uterus appeared hazy to me. additionally felt the patient had bilateral lower lung field changes felt to be consistent with either pneumonitis or inhaled material from her smoking crystal methamphetamine Bimanual exam demonstrated no true cervical motion tenderness for bilateral adnexal tenderness. Pelvic ultrasound was obtained which demonstrated fluid but no obvious signs of pelvic inflammatory disease. Follow up abdominal series now shows improvement with contrast to the rectum. The patient's WBC continues to normalize and her bowel function seems to be returning. Literature review does discuss both ileus after methamphetamine use and ischemic bowel/abdominal pain issues secondary to norepinephrine release. at this point in time, given her course and without more specific identifiable surgical problems, my working diagnosis remains abdominal pain secondary to crystal methamphetamine use. She is discussing I need to go to inpatient rehabilitation, so she has less risk for relapsing. At this point in time, I'm comfortable, increasing her diet to full liquids/low residue and this may advanced to general. When she has resolution of her pain.
[2017-10-15] MEDS: Potassium Chloride 40 MEQ in 0.9% Normal Saline 1,000 ML 70 MEQ IV (01:10)
[2017-10-15 02:40] VITALS: BP 108/70; PULSE 89; RESP 16; TEMP 36.8; O2SAT 96
[2017-10-15 03:00] VITALS: PULSE 79
[2017-10-15] MEDS: oxyCODONE 5 MG Tablet PO (05:32)
[2017-10-15] MEDS: Piperacil/Tazobactam 3.375 GM Q8 PREMIX IV (05:33)
[2017-10-15] MEDS: Mag Hydrox/Al Hydrox/Simeth 30 ML UDC PO (05:33)
[2017-10-15] MEDS: Enoxaparin 40 MG/0.4 ML Syringe SC (05:33)
[2017-10-15 05:39] VITALS: BP 112/82; PULSE 76; RESP 16; TEMP 36.7; O2SAT 98
[2017-10-15 06:56] VITALS: PULSE 82
--- NOTE | 2017-10-15 09:38 | PCM.DC ---
- Discharge Diagnoses Reason(s) for Visit for Discharge Instructions: Abdominal pain You will use the following diet at home:: Regular Your food should be the consistency of: Mechanical soft (ground) Your liquids should be the consistency of: Regular/Thin Discharge Activity: Return to Normal Activity Additional Instructions: Continue on a full liquid/soft diet without fiber. You are strongly advised to continue using illicit drugs and continue with outpatient drug rehab program. Follow up with the surgeon, Dr. Pineda in 2 weeks. Allergies/Adverse Reactions: Allergies Penicillins [PCN] Allergy (Verified 10/13/17 16:20) Hives Medications to take at Discharge Acetaminophen [Tylenol] 650 mg PO Q6H PRN PRN 10/13/17 Pantoprazole Sodium 40 mg PO BID #60 tablet. 10/14/17 SimETHICONE [Mylicon] 80 mg PO TIDPC PRN #90 tab 10/14/17 Ensure Enlive 120 ml PO 4X/DAY #100 liquid 10/15/17 Mag Hydrox/Al Hydrox/Simeth [Mylanta II] 30 ml PO Q4H PRN PRN #1 bottle 10/15/17 Nicotine [Nicoderm] 14 mg TRANSDERM. DAILY #30 patch 10/15/17 The following prescriptions were given: Mag Hydrox/Al Hydrox/Simeth [Mylanta II] 30 ml PO Q4H PRN PRN #1 bottle PRN Reason: Indigestion Nicotine [Nicoderm] 14 mg TRANSDERM. DAILY #30 patch SimETHICONE [Mylicon] 80 mg PO TIDPC PRN #90 tab PRN Reason: Indigestion Pantoprazole Sodium 40 mg PO BID #60 tablet. Ensure Enlive 120 ml PO 4X/DAY #100 liquid Orders to be completed after discharge: Basic Metabolic Profile (BMP) Location: Laboratory Primary Care Physician: Care Physician,No Primary [Primary Care Provider] - Please follow up with your Primary Care Physician in: in 1-2 weeks Please Follow Up With: Lawrence Pineda MD When: in 2 weeks Proposed Discharge Date: 10/15/17
--- NOTE | 2017-10-15 09:50 | PCM.DC.SUM ---
Discharge Date and Diagnosis Date of Admission: 10/10/17 Date of Discharge: 10/15/17 - Primary Discharge Diagnosis Abdominal pain Enteritis Duodenal ulcer Hypokalemia Methamphetamine use disorder - Secondary Discharge Diagnosis Polysubstance use disorder Hospital Course and Treatment Imaging Results: Clinical Impression(s) from Imaging Studies Abdomen/Pelvis CT 10/09/17 21:00 IMPRESSION: The study is limited without intravenous or oral contrast. Small bowel is prominent and there is wall thickening with surrounding inflammation suggesting an enteritis. This can be infectious or inflammatory. This appears most pronounced in the left lower abdomen. There is no ascites, free air or significant lymphadenopathy. Electronically Signed: Vero Fuentes MD at 11:06 EDT Tel Direct: [phone], Service support , Chest X-Ray 10/10/17 09:05 IMPRESSION: Bibasilar patchy opacities may reflect underlying atelectasis and/or pneumonia. Findings concerning for small bowel obstruction. Electronically Signed: Vera Tabares MD at 18:31 EDT Tel , Service support , Abdomen/Pelvis CT 10/11/17 09:00 Abdomen X-Ray 10/12/17 05:00 IMPRESSION: Persistent evidence for small bowel obstruction. Electronically Signed: Dina Reyes MD at 8:13 EDT , Service support , Transvaginal US 10/12/17 10:09 IMPRESSION: There is marked ascites in the pelvis. Some of the fluid is complex in nature, possibly hemorrhagic or infectious. No abnormalities are evident in the uterus or ovaries. There are distended loops of bowel in the pelvis corresponding to the appearance on CT. The CT from October 11 shows marked worsening of the small bowel compared to October 09 suggesting a small bowel obstruction of unknown etiology. Electronically Signed: Vero Fuentes MD at 11:06 EDT Tel Direct: [phone], Service support , Abdomen X-Ray 10/13/17 09:39 IMPRESSION: No evidence of intestinal obstruction. Electronically Signed: Jaden Beltran, at 6:03 EDT Tel , Service support , ADDENDUM: 10/14/17 0024 General surgery, Dr. Pineda Operations: None Procedures: EGD Summary of Care Provided: 37-year-old with past medical history of polysubstance abuse, methamphetamine, cocaine and marijuana who presented with abdominal pain with initial CT scan of the abdomen concerning for possible mesenteric inflammation/enteritis. Patient had had elevated WBC count but normal lactic acid. She had upper endoscopy done that showed duodenal ulcer without any signs of bleeding. Repeat CT scan of the abdomen and pelvis showed fluid in the pelvis with ileus. 1. Abdominal pain, likely related to recent methamphetamine intake vs enteritis, seen on initial CT of the abdomen and pelvis, EGD done shows duodenal ulcer, CT scan of the abdomen and pelvis showed ileus, conservatively managed, general surgery was following during the hospital stay. Patient did well on a soft diet for which she was still discharged on. Receives antibiotics for about 5 days. Discharged on simethicone, PPI, Mylanta 2. Hypokalemia noted during the hospital stay, replace, normal at discharge 3. Duodenal ulcer s/p biopsy, on PPI, follow up with general surgery in the outpatient within 2 weeks 4. Polysubstance use disorder - cocaine, marijuana, methamphetamine, urine tox positive for methamphetamine use disorder, advised to quit, patient plans on inpatient 180 admission Discharge Diet: Soft diet, - - Full liquid diet Discharge Activity: Return to Normal Activity Home Medications: Medications to take at Discharge Acetaminophen [Tylenol] 650 mg PO Q6H PRN PRN 10/13/17 Pantoprazole Sodium 40 mg PO BID #60 tablet. 10/14/17 SimETHICONE [Mylicon] 80 mg PO TIDPC PRN #90 tab 10/14/17 Ensure Enlive 120 ml PO 4X/DAY #100 liquid 10/15/17 Mag Hydrox/Al Hydrox/Simeth [Mylanta II] 30 ml PO Q4H PRN PRN #1 bottle 10/15/17 Nicotine [Nicoderm] 14 mg TRANSDERM. DAILY #30 patch 10/15/17 Following Prescrptions Were Given to Patient: Mag Hydrox/Al Hydrox/Simeth [Mylanta II] 30 ml PO Q4H PRN PRN #1 bottle PRN Reason: Indigestion Nicotine [Nicoderm] 14 mg TRANSDERM. DAILY #30 patch SimETHICONE [Mylicon] 80 mg PO TIDPC PRN #90 tab PRN Reason: Indigestion Pantoprazole Sodium 40 mg PO BID #60 tablet. Ensure Enlive 120 ml PO 4X/DAY #100 liquid Other Amb Orders: Basic Metabolic Profile (BMP) Location: Laboratory Primary Care Physician: Care Physician,No Primary [Primary Care Provider] - Please follow up with your Primary Care Physician in: in 1-2 weeks Please Follow Up With: Lawrence Pineda MD When: in 2 weeks Disposition: Home Minutes spent on discharge:: 40 Patient Condition:: Stable Medical Necessity - Tobacco Use Smoking Status: Former smoker Meaningful Use Info Meaningful Use Diagnoses (Choose all that apply): None applicable Code Visit Inpatient E&M: 52434 Disch Hosp
--- NOTE | 2017-10-15 09:55 | DS.PCM_ITS ---
Discharge Date and Diagnosis Date of Admission: 10/10/17 Date of Discharge: 10/15/17 - Primary Discharge Diagnosis Abdominal pain Enteritis Duodenal ulcer Hypokalemia Methamphetamine use disorder - Secondary Discharge Diagnosis Polysubstance use disorder Hospital Course and Treatment Imaging Results: Clinical Impression(s) from Imaging Studies Abdomen/Pelvis CT 10/09/17 21:00 IMPRESSION: The study is limited without intravenous or oral contrast. Small bowel is prominent and there is wall thickening with surrounding inflammation suggesting an enteritis. This can be infectious or inflammatory. This appears most pronounced in the left lower abdomen. There is no ascites, free air or significant lymphadenopathy. Electronically Signed: Vero Fuenets MD at 11:06 EDT Tel Direct: [phone], Service support , Chest X-Ray 10/10/17 09:05 IMPRESSION: Bibasilar patchy opacities may reflect underlying atelectasis and/or pneumonia. Findings concerning for small bowel obstruction. Electronically Signed: Vera Tabares MD at 18:31 EDT Tel , Service support , Abdomen/Pelvis CT 10/11/17 09:00 Abdomen X-Ray 10/12/17 05:00 IMPRESSION: Persistent evidence for small bowel obstruction. Electronically Signed: Dina Reyes MD at 8:13 EDT , Service support , Transvaginal US 10/12/17 10:09 IMPRESSION: There is marked ascites in the pelvis. Some of the fluid is complex in nature, possibly hemorrhagic or infectious. No abnormalities are evident in the uterus or ovaries. There are distended loops of bowel in the pelvis corresponding to the appearance on CT. The CT from October 11 shows marked worsening of the small bowel compared to October 09 suggesting a small bowel obstruction of unknown etiology. Electronically Signed: Vero Fuentes MD at 11:06 EDT Tel Direct: [phone], Service support , Abdomen X-Ray 10/13/17 09:39 IMPRESSION: No evidence of intestinal obstruction. Electronically Signed: Jaden Beltran, at 6:03 EDT Tel , Service support , ADDENDUM: 10/14/17 0024 General surgery, Dr. Pineda Operations: None Procedures: EGD Summary of Care Provided: 37-year-old with past medical history of polysubstance abuse, methamphetamine, cocaine and marijuana who presented with abdominal pain with initial CT scan of the abdomen concerning for possible mesenteric inflammation/enteritis. Patient had had elevated WBC count but normal lactic acid. She had upper endoscopy done that showed duodenal ulcer without any signs of bleeding. Repeat CT scan of the abdomen and pelvis showed fluid in the pelvis with ileus. 1. Abdominal pain, likely related to recent methamphetamine intake vs enteritis , seen on initial CT of the abdomen and pelvis, EGD done shows duodenal ulcer, CT scan of the abdomen and pelvis showed ileus, conservatively managed, general surgery was following during the hospital stay. Patient did well on a soft diet for which she was still discharged on. Receives antibiotics for about 5 days. Discharged on simethicone, PPI, Mylanta 2. Hypokalemia noted during the hospital stay, replace, normal at discharge 3. Duodenal ulcer s/p biopsy, on PPI, follow up with general surgery in the outpatient within 2 weeks 4. Polysubstance use disorder - cocaine, marijuana, methamphetamine, urine tox positive for methamphetamine use disorder, advised to quit, patient plans on inpatient 180 admission Discharge Diet: Soft diet, - - Full liquid diet Discharge Activity: Return to Normal Activity Home Medications: Medications to take at Discharge Acetaminophen [Tylenol] 650 mg PO Q6H PRN PRN 10/13/17 Pantoprazole Sodium 40 mg PO BID #60 tablet. 10/14/17 SimETHICONE [Mylicon] 80 mg PO TIDPC PRN #90 tab 10/14/17 Ensure Enlive 120 ml PO 4X/DAY #100 liquid 10/15/17 Mag Hydrox/Al Hydrox/Simeth [Mylanta II] 30 ml PO Q4H PRN PRN #1 bottle Nicotine [Nicoderm] 14 mg TRANSDERM. DAILY #30 patch 10/15/17 Following Prescrptions Were Given to Patient: Mag Hydrox/Al Hydrox/Simeth [Mylanta II] 30 ml PO Q4H PRN PRN #1 bottle PRN Reason: Indigestion Nicotine [Nicoderm] 14 mg TRANSDERM. DAILY #30 patch SimETHICONE [Mylicon] 80 mg PO TIDPC PRN #90 tab PRN Reason: Indigestion Pantoprazole Sodium 40 mg PO BID #60 tablet. Ensure Enlive 120 ml PO 4X/DAY #100 liquid Other Amb Orders: Basic Metabolic Profile (BMP) Location: Laboratory Primary Care Physician: Care Physician,No Primary [Primary Care Provider] - Please follow up with your Primary Care Physician in: in 1-2 weeks Please Follow Up With: Lawrence Pineda MD When: in 2 weeks Disposition: Home Minutes spent on discharge:: 40 Patient Condition:: Stable Medical Necessity - Tobacco Use Smoking Status: Former smoker Meaningful Use Info Meaningful Use Diagnoses (Choose all that apply): None applicable Code Visit Inpatient E&M: 82439 Disch Hosp
--- NOTE | 2017-10-15 09:58 | CASEMGMT ---
NAPOLEON spoke with patient this am. She has decided not to do the program in [place]. She feels it all happened too fast and she doesn't want to be that far away from family. She spoke with [facility] and asked if they could help keep her busy until she can get into [facility]. She has also been talking with her counselor at [facility], Jordon and he will keep working with her as well. She thanked NAPOLEON for helping her while here at [facility]. Plan: d/c back to [facility] with eventual plans to go into [facility] for inpatient drug treatment. Criss VENTURA MSW
[2017-10-15 10:00] VITALS: BP 107/69; PULSE 80; RESP 16; TEMP 36.6; O2SAT 97
[2017-10-15 10:41] LABS: Absolute Lymphocyte Count 2.43 X10^3/ul (0.83-4.51); Absolute Neutrophil Count 7.3 X10^3/uL (2.0-7.7); Basophil# 0.02 X10^3/uL; Basophil% 0.2 % (0-1); Eosinophil# 0.18 X10^3/uL; Eosinophils% 1.7 % (0-5); Hematocrit 34.2 % (37-47); Hemoglobin 11.8 g/dl (12.0-15.0); Lymphocyte # 2.43 X10^3/ul (4.0); Lymphocyte % 22.6 % (19-41); Mean Corp Hgb Conc 34.5 g/gl (32-36); Mean Corpuscular Hgb 30.3 pg (27.0-32.0); Mean Corpuscular Volume 87.7 fL (81-99); Mean Platelet Vol. 8.8 fl (6.2-12.0); Monocyte# 0.69 X10^3/uL; Monocyte% 6.4 % (0-10); Neutrophil # 7.33 X10^3/uL (2.7-7.7); Neutrophil % 68.3 % (47-70); Platelet Count 357 K/mm3 (150-450); RBC Distribution Width CV 12.8 % (11.6-14.6); RBC Distribution Width SD 41.4 fl (35.1-43.9); White Blood Count 10.7 K/mm3 (4.4-11.0)
[2017-10-15 10:56] LABS: Anion Gap 7 (5-15); BUN 3 mg/dL (7-18); BUN/Creat Ratio 4.8 RATIO (10-20); Calcium,Total 8.8 mg/dL (8.5-10.1); Chloride 107 mmol/L (98-107); Creatinine, Serum 0.62 mg/dL (0.55-1.02); EST Glomerular Filtration Rate 115 mL/min (>60); Est Glom Filt Rate - Afr Amer 139 mL/min (>60); Glucose 98 mg/dL (74-106); Sodium Level 140 mmol/L (136-145)
[2017-10-15 11:14] LABS: POSITIVE COUNT NO; POSITIVE DIFFERENTIAL NO; POSITIVE MORPHOLOGY NO
--- NOTE | 2017-10-15 19:40 | PN.SURG_ITS ---
Subjective: pain improving, not completely resolved but still present, planning on going to drug rehabilitation - Physical Exam General: Alert, Oriented x3, Cooperative Lungs: Clear to auscultation, Normal air movement Cardiovascular: Regular rate, No murmurs Abdomen: Bowel Sounds Present, Soft, Non Tender Vital Signs Temp Pulse Resp BP Pulse Ox 97.8 F 80 16 107/69 97 10/15/17 10:00 10/15/17 10:00 10/15/17 10:00 10/15/17 10:00 10/15/17 10:00 Oxygen Flow Rate (L/min) 2 Oxygen Delivery Method Room Air Weight: 64.8 kg Intake and Output for Last 24 Hours 10/13/17 10/14/17 10/15/17 23:59 23:59 23:59 Intake Total 1233 / 1233 3901.5 / 3901.5 1652 / 1652 Balance 1233 / 1233 3901.5 / 3901.5 1652 / 1652 Laboratory Tests Past 24 Hrs 10/15/17 10/15/17 10:32 10:32 WBC 10.7 RBC 3.90 L Hgb 11.8 L Hct 34.2 L MCV 87.7 MCH 30.3 MCHC 34.5 RDW 12.8 RDW Differential 41.4 Plt Count 357 MPV 8.8 Immature Gran % (Auto) 0.800 Neut % (Auto) 68.3 Lymph % (Auto) 22.6 [place] % (Auto) 6.4 Eos % (Auto) 1.7 Baso % (Auto) 0.2 Absolute Neuts (auto) 7.3 Absolute Lymphs (auto) 2.43 Total Counted Not Reportable Sodium 140 Potassium 4.0 Chloride 107 Carbon Dioxide 26.0 Anion Gap 7 BUN 3 L Creatinine 0.62 Est GFR (MDRD) Af Amer 139 Est GFR (MDRD) Non-Af 115 BUN/Creatinine Ratio 4.8 L Glucose 98 Calcium 8.8 Medical Necessity - Tobacco Use Smoking Status: Former smoker Assessment/Plan abdominal pain-complex etiology Jade Jackson is a 37 y.o. female who presented with abdominal pain which worsened after smoking crystal methamphetamine. She presented with abdominal pain and nonspecific noncontrast CT scan read as possible mesenteric inflammation. the patient's white blood cell count was 22,000 at admission. She had a negative Lactic acid level. Her urinalysis was unremarkable. Her toxicology screen was only positive for methamphetamine. patient was started on Zosyn as an antibiotic on my initial evaluation, the patient had more tenderness in the epigastric region and lower abdominal areas. Upper endoscopy was performed on Friday, which did demonstrate a duodenal ulcer with no signs of bleeding. the patient' s abdominal pain persisted in her white blood second increased to 39,000. Follow-up CT scan with oral and IV contrast was obtained. This still demonstrated no focal surgical problem such as appendicitis, but now demonstrated small bowel and colonic distention concerning for ileus versus obstruction. There is also fluid in the pelvis and the uterus appeared hazy to me. additionally felt the patient had bilateral lower lung field changes felt to be consistent with either pneumonitis or inhaled material from her smoking crystal methamphetamine Bimanual exam demonstrated no true cervical motion tenderness for bilateral adnexal tenderness. Pelvic ultrasound was obtained which demonstrated fluid but no obvious signs of pelvic inflammatory disease. Follow up abdominal series now shows improvement with contrast to the rectum. The patient's WBC continues to normalize and her bowel function seems to be returning. Literature review does discuss both ileus after methamphetamine use and ischemic bowel/abdominal pain issues secondary to norepinephrine release. at this point in time, given her course and without more specific identifiable surgical problems, my working diagnosis remains abdominal pain secondary to crystal methamphetamine use. She is discussing I need to go to inpatient rehabilitation, so she has less risk for relapsing. At this point in time, I'm comfortable, increasing her diet to full liquids/low residue and this may advanced to general when she has resolution of her pain. plan for her to follow-up in my office in one week.
== END 2017-10-15 12:18 | disposition home or self-care (01) | DRG 182 ==
LOC: ED 10-10 08:13 → ICU 10-10 08:14 → PCU 10-10 09:20
PROVIDERS: Internal Medicine; Surgery; Admitting Provider Family Medicine; Emergency Provider Emergency Medicine; Visit Provider Internal Medicine
PROC: 0DJ08ZZ Inspection of Upper Intestinal Tract, Via Natural or Artificial Opening Endoscopic (ICD-10-PCS; CPT 43235; principal; 2017-10-10 11:55)
DX: K52.89 Other specified noninfective gastroenteritis and colitis (principal); F15.10 Other stimulant abuse, uncomplicated; F14.10 Cocaine abuse, uncomplicated; K56.7 Ileus, unspecified; K26.9 Duodenal ulcer, unspecified as acute or chronic, without hemorrhage or perforation; F41.9 Anxiety disorder, unspecified; E87.6 Hypokalemia; K21.9 Gastro-esophageal reflux disease without esophagitis; F17.200 Nicotine dependence, unspecified, uncomplicated; Z62.810 Personal history of physical and sexual abuse in childhood
CPT/HCPCS: 36415; 71046; 74019; 74176; 74177; 76830; 80048; 80053; 80307; 81001; 83605; 83690; 83735; 84100; 84703; 85025; 85027; 87040; 88305; 88313; 88342; 93976; 96361; 96374; 96375; 99285; J7030; J7040; Q9967; A4216; J2405

== ENCOUNTER → 2017-10-10 11:30 | Outpatient (CLI) | payer MEDICAID, SELFPAY ==
--- NOTE | 2017-10-10 11:30 | DT_ITS ---
This patient was seen during an EMR downtime October 06, 2017 - October 13, 2017. This patient may have a combination of paper and electronic documentation or all paper documentation. All documentation is viewable within the e-chart portion of [employer] for each patient visit.
== END ==
PROVIDERS: Visit Provider Surgery
DX: R10.9 Unspecified abdominal pain (principal)

== ENCOUNTER 2018-10-23 16:31 | Emergency (ER) | payer SELFPAY ==
[2018-10-23 16:31] VITALS: BP 107/72; PULSE 90; RESP 16; TEMP 36.7; O2SAT 96; BMI 28.8
--- NOTE | 2018-10-23 16:54 | ED.DCSUM_ITS ---
- ER Visit Summary Date of Service: 10/23/18 Chief Complaint: Sore throat History of Present Illness: The patient is a 38 F who presents with sore throat that started yesterday. She reports mild cough and chills. She has had strep in the past and this reminds her of it. She states she saw white blisters on her left tonsil earlier today. She does not have any recent ill contacts that she knows of. Physical Examination: Vital signs unremarkable. Patient sitting upright in bed no acute distress. She is speaking with a strong voice and tolerating secretions well. Head neck examination grossly unremarkable. TMs are clear. Posterior pharynx examination is unremarkable. She does have mild bilateral anterior cervical lymphadenopathy. Heart is regular rate and rhythm. Lung sounds are clear. Abdomen is soft nontender. Test Results: Rapid strep is negative. Emergency Department Course and Treatment: Patient will be instructed to use Tylenol and ibuprofen as needed for pain. Push fluids. Return for worsening symptoms or concerns. Treatment Plan: [] Disposition: Discharge Impression: Pharyngitis This note was generated with [employer] dictation software. It may contain incorrect words, spelling, and punctuation that were not noted in review of the chart prior to signing ED Disposition - Plan for ED Patient: Disposition: Home or Assisted Living Instructions: PHARYNGITIS, Viral Referrals: Jerrod Chu MD [STAFF PHYSICIAN] - As Needed
[2018-10-23 18:02] VITALS: BP 104/69; PULSE 75; RESP 16; O2SAT 98
== END 2018-10-23 18:08 | disposition home or self-care (01) ==
PROVIDERS: Emergency Provider Emergency Medicine
DX: J02.9 Acute pharyngitis, unspecified (principal); Z87.891 Personal history of nicotine dependence
CPT/HCPCS: 87880; 99282

== ENCOUNTER 2019-06-02 15:05 | Emergency (ER) | payer SELFPAY ==
[2019-06-02 15:06] VITALS: BP 123/68; PULSE 97; RESP 16; TEMP 36.8; O2SAT 98; BMI 28.3
--- NOTE | 2019-06-02 15:22 | ED.VIS.GEN ---
History of Present Illness Chief Complaint: Abd Pain Detail of Chief Complaint: Abdominal pain with nausea and vomiting Informant: Patient Onset: Yesterday Context: Sudden Onset Timing: Continuous - Abdominal pain is continuous and described as crampy Quality: Crampy Location: Diffuse Current Severity: Mild Maximum Severity: Moderate Worsened by: Vomiting Relieved by: Nothing Associated Symptoms: Thirst, dry mouth and lightheadedness Narrative: She is a 39-year-old woman who presents with diffuse crampy abdominal pain that started last evening. She states she has vomited numerous times. She now has dry heaves. Friday her sought medical attention for viral gastroenteritis. She also states there are multiple coworkers that are ill. She denies fever or chills. She denies headache. She denies visual, ocular auditory symptoms. Denies cardiac respiratory symptoms. She denies urologic symptoms. She denies rash. She is a smoker. She has no other complaints. Past surgical history is negative. Past medical history is negative. Prior similar symptoms: No Recent Illness/Hospitalization: No - Past Medical History (1) No significant past medical history Status: Acute Past Medical History - Allergies and Home Meds Allergies/Adverse Reactions: Allergies Penicillins [PCN] Allergy (Verified 06/02/19 15:09) Reyna Primary Care Physician: Care Physician,No Primary [Primary Care Provider] - Past Medical History: None Surgical History: no surgical history Lives: Spouse/ Significant Other Smoking Status: Heavy Smoker (>10/day) Alcohol: Occasional Drugs: None Review of Systems General: Reports: Malaise. Denies: Chills, Fever, Sweats Eyes: Denies: Visual changes - bilaterally, Blurred Vision - bilaterally ENT: Denies: Rhinorrhea, Sore throat Cardiovascular: Denies: Chest pain, Palpitations Respiratory: Denies: Dyspnea, Cough, Dyspnea on exertion Gastrointestinal: Reports: Abdominal pain, Nausea, Vomiting. Denies: Diarrhea, Constipation, Melena, Hematochezia Genitourinary: Denies: Dysuria, Hematuria, Frequency Musculoskeletal: Denies: Myalgias, Arthralgias, Neck pain, Back pain, Extremity Pain Skin: Denies: Rash, Wounds Neurological: Denies: Headache, Weakness, Parasthesia, Numbness Hematologic: Denies: Easy bruising, Easy bleeding Physical Exam Vital Signs/Narrative: Vital Signs Temp Pulse Resp BP Pulse Ox 06/02/19 15:06 98.2 F 97 16 123/68 H 98 Inital Vital Signs reviewed: Yes General: Well nourished, Well developed, No Acute Distress Head: Normocephalic, Atraumatic Eyes: Perrl, EOMI. Negative for: Pale conjunctiva, Scleral icterus ENT: No rhinorrhea, Dry mucous membranes Neck: Supple, Nontender, No lymphadenopathy, No JVD Cardiovascular: Regular rate, Regular rhythm, No murmurs, Normal S1, Normal S2 Respiratory: No distress, CTA bilaterally, Chest nontender Abdomen: Soft, Nondistended, Normal bowel sounds, Tender. Negative for: Guarding, Rebound tenderness Rectal: Deferred Back: Nontender, Normal Inspection Extremities: Nontender, No edema Skin: Normal color, No rash Neurological: Alert, Oriented x3, Cranial nerves II-XII grossly intact, Normal Strength, Normal Sensation Psychological: Normal affect, Normal Mood Diagnostic/Tx/Re-eval - Medical Decision Making With multiple coworkers ill with viral infection with viral gastroenteritis seen 2 days ago suspect this is viral infection as well. Since patient is on no meds no past medical history labs were not obtained. She received 4 mg of Zofran IV push and 1 L of normal saline. She was reassessed at 1640. She was asleep. She was awakened. She reports she feels better. She complains of slight right forehead discomfort. She is had no vomiting. Plan is to discharge with prescription for Zofran and referred to the [facility] ED Disposition - Plan for ED Patient: Disposition: Home or Assisted Living Diagnosis: Nausea and vomiting, Dehydration, Abdominal pain Instructions: VOMITING (7y-Adult) Prescriptions: Ondansetron [Zofran Odt] 4 mg PO Q8H PRN PRN #5 tab PRN Reason: Nausea Prescription Printed Referrals: Care Physician,No Primary [Primary Care Provider] - Laxmi Weaver [NON-STAFF] - 3-5 Days if not improving
[2019-06-02] MEDS: 0.9% Normal Saline 1,000 ML 1000 ML IV (15:36)
[2019-06-02] MEDS: Ondansetron 4 MG/2 ML Vial IV (15:36)
[2019-06-02 15:38] VITALS: RESP 16
[2019-06-02 17:18] VITALS: PULSE 78; RESP 18; O2SAT 97
== END 2019-06-02 17:20 | disposition home or self-care (01) ==
PROVIDERS: Emergency Provider Emergency Medicine
DX: R10.9 Unspecified abdominal pain (principal); R11.2 Nausea with vomiting, unspecified; E86.0 Dehydration; F17.200 Nicotine dependence, unspecified, uncomplicated
CPT/HCPCS: 96361; 96374; 99283; J7030; A4216; J2405

== ENCOUNTER 2020-06-15 04:05 | Emergency (ER) | payer SELFPAY ==
[2019-06-04 13:43] VITALS: BMI 28.3
[2020-06-15] VITALS (13 sets, daily range): BP systolic 86–102; BP diastolic 53–75; PULSE 74–134; RESP 14–16; TEMP 36.6; O2SAT 93–100; BMI 29.0
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
[2020-06-15 04:35] LABS: Absolute Lymphocyte Count 1.05 X10^3/uL (0.83-4.51); Basophil# 0.03 X10^3/uL; Basophil% 0.2 % (0-1); Hematocrit 39.9 % (37-47); Hemoglobin 13.9 g/dL (12.0-15.0); Lymphocyte # 1.05 X10^3/ul (4.0); Lymphocyte % 7.2 % (19-41); Mean Corp Hgb Conc 34.8 g/dL (32-36); Mean Corpuscular Volume 88.9 fL (81-99); Mean Platelet Vol. 9.1 fl (6.2-12.0); Monocyte# 0.43 X10^3/uL; NRBC Flagged by Analyzer 0 % (0-5); Neutrophil # 12.95 X10^3/uL (2.7-7.7); Neutrophil % 89.2 % (47-70); Platelet Count 381 K/mm3 (150-450); RBC Distribution Width CV 12.6 % (11.6-14.6); RBC Distribution Width SD 41.3 fl (35.1-43.9); Red Blood Count 4.49 M/mm3 (4.2-5.4); White Blood Count 14.5 K/mm3 (4.4-11.0)
[2020-06-15 04:42] LABS: Internal QC Validated? YES +Cl - CLEAR BKGD; Pregnancy, Serum, hCG Quali. NEGATIVE Negative
[2020-06-15 04:49] LABS: Anion Gap 7 (5-15); BUN 14 mg/dL (7-18); BUN/Creat Ratio 11.1 RATIO (10-20); Calcium,Total 9.1 mg/dL (8.5-10.1); Chloride 110 mmol/L (98-107); Creatinine, Serum 1.26 mg/dL (0.55-1.02); EST Glomerular Filtration Rate 50 mL/min (>60); Est Glom Filt Rate - Afr Amer 61 mL/min (>60); Estimated Creatinine Clearance 43.06 ml/min; Glucose 129 mg/dL (74-106); Potassium 3.1 mmol/L (3.5-5.1); Sodium Level 142 mmol/L (136-145)
[2020-06-15 05:00] LABS: Alcohol, Blood (Medical)-Serum < 3.0 mg/dL
--- NOTE | 2020-06-15 11:47 | ED.VISSUMM ---
- ER Visit Summary Date of Service: 06/15/20 Chief Complaint: [] History of Present Illness: The patient is a 40 F [] Physical Examination: [] Test Results: [] Emergency Department Course and Treatment: [] Treatment Plan: [] Disposition: Patient signed out to me for reevaluation once clinically sober. Patient is now awake and back to her baseline. Her is at the bedside. She is hemodynamically stable in the ER. She is given oral potassium replacement. She is drinking fluids. She will be discharged home. She is instructed to drink lots of fluids over the next 24 hours and given return precautions. Patient and verbalized agreement understanding this plan. Impression: 1. Agitated delirium 2. Methamphetamine intoxication. 3. Hypokalemia. This note was generated with [employer] dictation software. It may contain incorrect words, spelling, and punctuation that were not noted in review of the chart prior to signing ED Disposition - Plan for ED Patient: Disposition: Home or Assisted Living Diagnosis: Methamphetamine abuse Instructions: ED Drug Abuse Referrals: [facility] [STAFF PHYSICIAN] -
== END 2020-06-15 12:06 | disposition home or self-care (01) ==
PROVIDERS: Emergency Provider Emergency Medicine
DX: F15.129 Other stimulant abuse with intoxication, unspecified (principal); R45.1 Restlessness and agitation; E87.6 Hypokalemia; R41.0 Disorientation, unspecified; F31.9 Bipolar disorder, unspecified; F20.9 Schizophrenia, unspecified; F17.200 Nicotine dependence, unspecified, uncomplicated; Z88.0 Allergy status to penicillin
CPT/HCPCS: 80048; 82077; 84703; 85025; 99284

== ENCOUNTER 2020-12-10 17:46 | Emergency (ER) | payer MEDICAID, SELFPAY ==
[2020-12-08 14:16] VITALS: BMI 29.0
[2020-12-10 17:47] VITALS: BP 117/65; PULSE 100; RESP 16; TEMP 37.1; O2SAT 98; BMI 31.5
[2020-12-10] MEDS: HYDROcodone Bitartrate/Apap 5/325 Tablet PO (18:49)
[2020-12-10] MEDS: Lidocaine 1% /Epi 1:100 (20ml) 20 ML Vial INFILT (18:49)
[2020-12-10 18:53] VITALS: BP 117/65; PULSE 82; RESP 16; TEMP 37.1; O2SAT 100
[2020-12-10 20:07] VITALS: RESP 16
--- NOTE | 2020-12-10 20:07 | EX.ED.DYSGE1 ---
HPI History of Present Illness Chief Complaint: Abscess Informant: patient Narrative Narrative: Patient is a 40-year-old female patient with worsening redness and swelling of her lower abdomen. She was diagnosed with a skin infection a [facility]. She is placed on Bactrim has been on it for 3 days. Increased pain and redness. She is not had any associated drainage. Denies any fever. States is quite painful. No other complaints at this time. PFSH PFSH Medical History Anxiety Bipolar disorder Depression Schizophrenia Home Medications clindamycin HCl 300 mg PO 4X/DAY #80 cap 12/10/20 [Rx Last Taken Unknown] hydrocodone-acetaminophen 1 tab PO Q8H PRN 2 Days #6 tab 12/10/20 [Rx Last Taken Unknown] ibuprofen 600 mg PO Q6H PRN PRN #20 tab 12/10/20 [Rx Last Taken Unknown] olanzapine 10 mg PO QHS 12/10/20 [History Last Taken Unknown] Allergy/AdvReac Type Severity Reaction Status Date / Time Penicillins [PCN] Allergy Hives Verified 12/10/20 17:48 Social History Smoking Status: Current some day smoker tobacco type: cigarettes ROS ROS ED Constitutional Constitutional ED: Denies chills, fever(s) or malaise Eyes Eyes: Denies blurry vision or loss of vision ENT ENT ED: Denies rhinorrhea or sore throat Cardiovascular Cardiovascular: Denies chest pain or dizziness Respiratory/Chest Respiratory/Chest: Denies cough or dyspnea Gastrointestinal Gastrointestinal: Denies nausea or vomiting Genitourinary Genitourinary ED: Denies dysuria or hematuria Musculoskeletal Musculoskeletal: Denies arthralgias or myalgias Integumentary Reports abscess and rash Neurologic Neurologic: Denies focal weakness or headache(s) Psychiatric Psychiatric: Denies anxiety or behavioral changes EXAM Physical Exam Const Vital Signs: 12/10/20 17:47 12/10/20 18:53 12/10/20 20:07 Temperature 98.8 F 98.8 F Temperature Source Temporal Oral Pulse Rate 100 82 Respiratory Rate 16 16 16 Blood Pressure 117/65 117/65 Blood Pressure Mean 82 82 Pulse Ox 98 100 Oxygen Delivery Method Room Air Room Air Positive well nourished, well developed and no apparent distress General Appearance ED: well developed HEENT Reports normocephalic and moist mucous membranes atraumatic Nose: no nasal discharge External Ear: external ears normal Mouth ED: Yes moist mucous membranes normal Eyes PERRL and EOMs intact bilaterally Neck full ROM and no meningeal signs Chest Wall inspection of chest normal Resp normal respiratory effort and normal air movement Cardio regular rate and regular rhythm GI normal to inspection, nondistended, normoactive bowel sounds and non-tender Extremity normal to inspection and full ROM Neuro oriented x3 and no focal motor deficits Psych mental status grossly normal and thought process normal Skin Skin Narrative: Patient is a 4 cm x 5 cm area of erythema and induration on the mid lower abdomen with surrounding 10 cm x 7 cm area of erythema. Is tender to palpation with associated warmth. There is a central scab. No active drainage at this time. MDM MDM MDM Narrative Medical decision making narrative: Patient evaluated for worsening redness and swelling of her lower abdomen. Physical exam is consistent with abscess and associated cellulitis. Bedside ultrasound performed by myself does show an area of hypoechoic fluid collection consistent with an abscess. Incision and drainage performed. See procedure note. Patient is given a dose of [place] in the ER. She is discharged home with a short course of [place] as well as Motrin for pain control. Should be switched from Bactrim to clindamycin. She is counseled return precautions. She verbalizes agreement understand this plan. Discharged home in stable condition. Procedures Other Procedures Procedure(s): Incision and drainage Area cleansed with Betadine and allowed to dry. 1% lidocaine with epinephrine injected to form we wheel over the abscess. Once adequate analgesia was achieved #11 blade used to make 1 cm horizontal incision. Purulence is expressed and hemostat used to open up loculations. Area is irrigated with sterile saline. Quarter inch packing is placed. Patient tolerated procedure well with no immediate complications. Discharge Plan Triage Chief Complaint: Abscess ED Provider: Krysten Dale Dx/Rx/DC Orders Clinical Impression: Cutaneous abscess of abdominal wall, Cellulitis of abdominal wall Instructions: ED Abscess Incision And Drainage Prescriptions: New hydrocodone-acetaminophen 5-325 mg tablet 1 tab PO Q8H PRN (Reason: pain) 2 Days Qty: 6 RF: 0 ibuprofen 600 mg tablet 600 mg PO Q6H PRN PRN (Reason: Pain Score 1-10/10) Qty: 20 RF: 0 clindamycin HCl 150 mg capsule 300 mg PO 4X/DAY Qty: 80 RF: 0 No Action olanzapine 10 mg Tablet 10 mg PO QHS RF: 0 Primary Care Provider: Care Physician,No Primary Referrals: Laxmi Weaver [NON-STAFF] - Care Physician,No Primary [Primary Care Provider] - Activity Restrictions/Additional Instructions: Packing was placed. Remove it after 3 days of is not fallen out on its own. Disposition Disposition: Home, Self Care Discharge Date/Time: 12/10/20 20:24
[2020-12-10] MEDS: Ibuprofen 600 MG Tablet PO (20:19)
== END 2020-12-10 20:24 | disposition home or self-care (01) ==
PROVIDERS: Emergency Provider Emergency Medicine
DX: L03.311 Cellulitis of abdominal wall (principal); L02.211 Cutaneous abscess of abdominal wall; F17.210 Nicotine dependence, cigarettes, uncomplicated; F20.9 Schizophrenia, unspecified; F31.9 Bipolar disorder, unspecified; F41.9 Anxiety disorder, unspecified
CPT/HCPCS: 10060; 99283